=== PATIENT | female | born 1990 ===

== ENCOUNTER 2018-04-20 09:08 | Emergency (ER) | payer MEDICAID ==
[2018-04-20 09:17] VITALS: BP 103/63; PULSE 90; RESP 14; TEMP 98.4; O2SAT 100
[2018-04-20] MEDS ORDERED: Sodium Chloride 0.9% 1,000 ML IV STA (09:45)
--- NOTE | 2018-04-20 09:48 | ED PDOC ---
HPI: Female Pain <Mariola Salcido - Last Filed: 04/20/18 12:47> Additional History Per: Patient Additional Complaint(s): This is 28 y/o F with no significant PMH presented to ER c/o urinary hesitancy and RLQ abdominal pain. As per patient, symptoms started 2 weeks ago, progressively getting worse, hesitancy not associated with any dysuria or fever. RLQ pain 8/10, radiated to left, pain gets worse with movement, associated with 2 episodes of NBNB vomiting yesterday. Denies any nausea, chest pain, SOB, dizziness or weakness. Denies any diarrhea, last BM 2 days ago, denies changes in appetite. Patient is sexually active, does not use any protection. PMH: Denies any Hx of UTI or STIs PSH: 2x prior , last with BTL in 2015 Allg: NKDA Meds: Denies SH: Denies any alcohol, smoking or drug use FH: No significant family hx ROS: As per HPI <Ravi Sullivan - Last Filed: 04/20/18 13:32> Time Seen by Provider: 04/20/18 09:19 Supervising Attending Note - Supervising Attending Note The Documented history was done by the: Physician Oyster Harvester The documented physical exam was done by the: Physician Oyster Harvester The documented procedures were done by the: Physician Oyster Harvester - Attestation: I have personally seen and examined this patient.: Yes I have fully participated in the care of the patient.: Yes I have reviewed all pertinent clinical information, including history, physical exam and plan: Yes - Notes: Notes:: Pt with normal vitals and labs. US showed no pelvic abnormalities. UA pending and pelvic exam not performed however pt refusing to stay. Risks of leaving without a diagnosis discussed with the patient. Will contact the patient via telephone and will call in a prescription if necessary based on UA results. Return parameters discussed with the patient. <OmariMariola J - Last Filed: 04/20/18 12:47> Past Medical History Vital Signs: Last Vital Signs Temp 98.4 F 04/20/18 09:17 Pulse 90 04/20/18 09:17 Resp 14 04/20/18 09:17 BP 103/63 04/20/18 09:17 Pulse Ox 100 04/20/18 10:19 <Mariola Salcido - Last Filed: 04/20/18 12:47> Vital Signs: Last Vital Signs Temp 98.4 F 04/20/18 09:17 Pulse 90 04/20/18 09:17 Resp 14 04/20/18 09:17 BP 103/63 04/20/18 09:17 Pulse Ox 100 04/20/18 09:17 - Medical History PMH: No Chronic Diseases - Surgical History Surgical History: No Surg Hx - Family History Family History: States: No Known Family Hx <Ravi Sullivan - Last Filed: 04/20/18 13:32> - Allergies Allergies/Adverse Reactions: Allergies Allergy/AdvReac Type Severity Reaction Status Date / Time No Known Allergies Allergy Verified 04/20/18 09:31 Review of Systems Constitutional: Negative for: Fever Eyes: Negative for: Pain ENT: Negative for: Ear Pain, Nose Pain Cardiovascular: Negative for: Chest Pain, Palpitations Respiratory: Negative for: Cough, Shortness of Breath Gastrointestinal: Positive for: Vomiting, Abdominal Pain. Negative for: Nausea Genitourinary Female: Positive for: Frequency. Negative for: Dysuria Musculoskeletal: Negative for: Neck Pain Skin: Negative for: Rash Neurological: Negative for: Weakness Psych: Negative for: Anxiety <Ravi Sullivan - Last Filed: 04/20/18 13:32> Physical Exam - Physical Exam Appears: Positive for: No Acute Distress Head Exam: Positive for: NORMAL INSPECTION Skin: Positive for: Normal Color Eye Exam: Positive for: Normal appearance ENT: Positive for: Normal ENT Inspection Neck: Positive for: Normal Cardiovascular/Chest: Positive for: Regular Rate, Rhythm. Negative for: JVD Respiratory: Positive for: Normal Breath Sounds. Negative for: Decreased Breath Sounds, Accessory Muscle Use, Crackles, Wheezing Gastrointestinal/Abdominal: Positive for: Tenderness (superapubic and b/l LQ abdominal pain ), Distended (mild ) Back: Positive for: Normal Inspection. Negative for: L CVA Tenderness, R CVA Tenderness Extremity: Positive for: Normal ROM, Tenderness (R antro-medial thigh, small lymph node palpable ), Capillary Refill. Negative for: Calf Tenderness, Swelling Neurologic/Psych: Positive for: Alert, hot mill worker II-XII, Oriented. Negative for: Motor/Sensory Deficits <Ravi Sullivan - Last Filed: 04/20/18 13:32> - Laboratory Results Result Diagrams: 04/20/18 10:00 04/20/18 10:00 Lab Results: Total Bilirubin 0.3 mg/dl (0.2-1.3) 04/20/18 10:00 AST 19 U/L (14-36) 04/20/18 10:00 ALT 17 U/L (9-52) 04/20/18 10:00 Alkaline Phosphatase 43 U/L (38-126) 04/20/18 10:00 Total Protein 7.4 G/DL (6.3-8.2) 04/20/18 10:00 Albumin 4.0 g/dL (3.5-5.0) 04/20/18 10:00 Globulin 3.3 gm/dL (2.2-3.9) 04/20/18 10:00 Albumin/Globulin Ratio 1.2 (1.0-2.1) 04/20/18 10:00 Lipase 18 U/L (23-300) L 04/20/18 11:19 <Mariola Salcido - Last Filed: 04/20/18 12:47> - Laboratory Results Result Diagrams: 04/20/18 10:00 04/20/18 10:00 - ECG O2 Sat by Pulse Oximetry: 100 - Progress ED Course And Treament: A/P: 28 y/o F with no significant PMH presented to ER c/o urinary hesitancy and RLQ abdominal pain. - CBC, CMP, UA, Ucx, U prg, Lipase - TV U/S - 1L NS IVF - Reevaluation after TV U/S: Possible pelvic exam and culture GC/CL Case discussed with Dr. Salcido CBC, CMP reviewed: Negative for any significant changes TV u/s: Reviewed: Negative for any acute changes Urine was pending and Patient signed AMA Risks explained regarding her symptoms and possible diagnosis, ER precautions discussed with patient, Patient signed AMA Condition: Re-examined <Ravi Sullivan - Last Filed: 04/20/18 13:32> Medical Decision Making Medical Decision Making: Cystitis <Ravi Sullivan - Last Filed: 04/20/18 13:32> Disposition <Mariola Salcido - Last Filed: 04/20/18 12:47> - Disposition Disposition: Against Medical Advice Disposition Time: 13:08 (Risks explained regarding her symptoms and possible diagnosis, ER precautions discussed with patient, Patient signed AMA) <Ravi Sullivan - Last Filed: 04/20/18 13:32> - Clinical Impression Clinical Impression: Urinary hesitancy, Abdominal discomfort - Disposition Condition: STABLE Forms: [employer] ([employer])
[2018-04-20 10:21] LABS: BASO % 0.4 % (0.0-2.0); EOS # 0.1 K/uL (0.0-0.7); EOS % 1.3 % (0.0-4.0); HEMOGLOBIN 12.4 g/dL (12.0-16.0); LYMPH # 1.2 K/uL (1.0-4.3); LYMPH % 15.5 % (20.0-40.0); MEAN CELL VOLUME 91.5 fl (81.0-99.0); MEAN CORPUSCULAR HEMOGLOBIN 30.6 pg (27.0-31.0); MEAN CORPUSCULAR HGB CONC 33.5 g/dL (33.0-37.0); MEAN PLATELET VOLUME 10.7 fl (7.2-11.7); MONO # 0.6 K/uL (0.0-0.8); MONO % 8.2 % (0.0-10.0); NEUT # 5.8 K/uL (1.8-7.0); NEUT % 74.6 % (50.0-75.0); RBC 4.03 Mil/uL (3.80-5.20); RED CELL DISTRIBUTION WIDTH 12.5 % (11.5-14.5); WHITE BLOOD COUNT 7.8 K/uL (4.8-10.8)
[2018-04-20 10:22] LABS: BLOOD UREA NITROGEN 10 mg/dl (7-17); GFR NON-AFRICAN AMERICAN > 60
[2018-04-20 10:23] LABS: ALB/GLOB RATIO 1.2 (1.0-2.1)
[2018-04-20 10:30] LABS: ALT/SGPT 17 U/L (9-52); AST/SGOT 19 U/L (14-36)
--- NOTE | 2018-04-20 11:25 | US ---
Date of service: 04/20/2018 HISTORY: RLQ tenderness COMPARISON: None available. TECHNIQUE: Grayscale, color Doppler and spectral evaluation the pelvis performed transvaginally FINDINGS: UTERUS: Measures 10.4 x 6.1 x 7.7 cm. 3. Normal in size and appearance. No fibroid or other mass lesion seen. ENDOMETRIUM: Measures 8 mm in diameter. Unremarkable. CERVIX: No cervical abnormality identified. RIGHT OVARY: Measures 3.8 x 2.6 x 2.4 cm. No solid mass. Normal flow. LEFT OVARY: Measures 2.7 x 2.0 x 2.4 cm. No solid mass. Normal flow. FREE FLUID: No significant free fluid noted. OTHER FINDINGS: None. IMPRESSION: Unremarkable pelvic ultrasound.
[2018-04-20 12:06] LABS: SQUAMOUS EPITHIAL 14 /hpf (0-5); URINE AMORPHOUS SEDIMENT FEW /ul (<OCC); URINE BACTERIA RARE (<OCC); URINE BILIRUBIN NEGATIVE (NEGATIVE); URINE BLOOD NEGATIVE (NEGATIVE); URINE COLOR YELLOW (YELLOW); URINE GLUCOSE (UA) NEG (NEGATIVE); URINE LEUKOCYTE ESTERASE NEG Leu/uL (Negative); URINE PROTEIN 30 mg/dL (NEGATIVE)
[2018-04-20 12:48] LABS: URINE CLARITY CLOUDY (Clear)
--- NOTE | 2018-04-21 11:11 | ED PDOC ---
ED Additional Note - Date & Time of Evaluation Date of Evaluation: 04/21/18 Time of Evaluation: 11:10 - Physician Additional Note Physician Additional Note: Patient called requesting urine culture results. Explained to patient that there has been no growth of bacteria to date so no evidence of UTI so far.
== END 2018-04-20 12:50 | disposition home or self-care (01) ==
LOC: H.ER 09:08
DX: N39.0 Urinary tract infection, site not specified (principal)
CPT/HCPCS: 76830; 80053; 81003; 81025; 83690; 85025; 87086; 96360; 99284; J7030